=== PATIENT | female | born 1960 | race Hispanic/Latino ===

== ENCOUNTER 2016-07-22 15:22 | Inpatient (IN) | payer MEDICARE ==
[2016-07-22 16:15] LABS: Basophils % (Auto) 0.2 % (0.0-1.8); Eosinophils % (Auto) 0.3 % (0.0-4.3); Hemoglobin 16.5 gm/dl (10.1-14.3); Mean Corpuscular HGB Conc 34 % (30-34); Mean Corpuscular Hemoglobin 34 pg (28-32); Mean Corpuscular Volume 99 fl (79-97); Platelet Count 248 K/mm3 (140-440); Red Blood Count 4.87 M/mm3 (3.65-5.03); Red Cell Distribution Width 14.9 % (13.2-15.2); White Blood Count 8.8 K/mm3 (4.5-11.0)
[2016-07-22 16:20] LABS: Blood Urea Nitrogen 8 mg/dL (7-17); Calcium 8.7 mg/dL (8.4-10.2); Carbon Dioxide 30 mmol/L (22-30); Chloride 83.4 mmol/L (98-107); Glucose 306 mg/dL (65-100); Potassium 4.9 mmol/L (3.6-5.0); Sodium 127 mmol/L (137-145)
[2016-07-22 16:21] LABS: Anion Gap 19 mmol/L
--- NOTE | 2016-07-22 17:00 | Emergency Department Report ---
ED Shortness of Breath HPI - General Chief Complaint: Dyspnea/Respdistress Stated Complaint: AR Time Seen by Provider: 07/22/16 16:25 Source: patient, EMS, old records reviewed (no previous medical record under [facility]) Mode of arrival: Stretcher Limitations: No Limitations - History of Present Illness Initial Comments: 55-year-old female the past medical history of COPD with 2 L O2 dependence, diabetes, sleep apnea, and obesity presents to the hospital with complaints of shortness of breath for the past 4 days. Patient having wheezing episodes, cough that is productive, and subjective fever. She complains of left upper and mid chest pain described as a soreness worse with palpation, rated 3/10 in intensity, and intermittent. No previous history of intubations. Patient is intimate compliant with her home CPAP. Research Program Intern: primary care doctor: Dr. Lma? - Related Data Home Medications Medication Instructions Recorded Confirmed Last Taken Aspirin [Aspirin BABY CHEW TAB] 81 mg PO DAILY 07/22/16 07/22/16 Unknown Insulin NPH Hum/Reg Insulin Hm 20 units SUB-Q TID 07/22/16 07/22/16 Unknown [HumuLIN 70-30 Vial] clonazePAM [KlonoPIN] 1 mg PO TID 07/22/16 07/22/16 Unknown traZODone [Desyrel] 200 mg PO QHS 07/22/16 07/22/16 Unknown Allergies Allergy/AdvReac Type Severity Reaction Status Date / Time No Known Allergies Allergy Unverified 07/22/16 15:41 ED Review of Systems ROS: Stated complaint: AR Other details as noted in HPI Comment: All other systems reviewed and negative Other: Constitutional: As per HPI Eyes: No eye pain visual changes ENT: No ear pain or throat pain Neck: Denies pain Respiratory: As per HPI Cardiovascular: As per HPI GI: Denies abdominal pain, nausea, vomiting, diarrhea : Denies dysuria, urinary frequency, or urgency Musculoskeletal: Denies back pain Skin: Denies rash, lesions, erythema Neurologic: Denies headache, numbness, weakness Psychiatric: Denies suicidal ideation, hallucinations ED Past Medical Hx - Past Medical History Previous Medical History?: Yes Hx Diabetes: Yes Hx Asthma: Yes Hx COPD: Yes - Surgical History Past Surgical History?: Yes Additional Surgical History: C-sections - Social History Smoking Status: Current Every Day Smoker Substance Use Type: None - Medications Home Medications: Home Medications Medication Instructions Recorded Confirmed Last Taken Type Aspirin [Aspirin BABY CHEW TAB] 81 mg PO DAILY 07/22/16 07/22/16 Unknown History Insulin NPH Hum/Reg Insulin Hm 20 units SUB-Q TID 07/22/16 07/22/16 Unknown History [HumuLIN 70-30 Vial] clonazePAM [KlonoPIN] 1 mg PO TID 07/22/16 07/22/16 Unknown History traZODone [Desyrel] 200 mg PO QHS 07/22/16 07/22/16 Unknown History ED Physical Exam - General Limitations: No Limitations - Other Other exam information: General: No limitations, patient is alert in no acute distress, obese Head exam: Atraumatic, normocephalic Eyes exam: Normal appearance ENT: Moist mucous membrane, normal oropharynx Neck exam: Normal inspection, full range of motion, no meningismus nontender Respiratory exam: Diminished breath sounds bilaterally, no tachypnea, no accessory muscle use at this time Cardiovascular: Normal rate and rhythm, normal heart sounds, reproducible left anterior chest wall tenderness Abdomen: Soft, nondistended, and nontender, with normal bowel sounds, no rebound, or guarding Extremity: Full range of motion, trace lower extremity edema Back: Normal Inspection, full range of motion, no tenderness Neurologic: Alert, oriented x3, cranial nerves intact, no motor or sensory deficit Psychiatric: normal affect, normal mood Skin: Warm, dry, intact ED Course Vital Signs 07/22/16 07/22/16 07/22/16 15:25 15:31 16:00 Pulse Rate 71 76 78 Respiratory 15 15 Rate Blood Pressure 128/81 116/67 O2 Sat by Pulse 90 89 Oximetry - Reevaluation(s) Reevaluation #1: 07/22/16 17:06 Patient placed on Ventimask with improved oxygenation ED Medical Decision Making - Lab Data Result diagrams: 07/22/16 15:49 07/22/16 15:49 Lab Results 07/22/16 07/22/16 Range/Units 15:49 15:49 WBC 8.8 (4.5-11.0) K/mm3 RBC 4.87 (3.65-5.03) M/mm3 Hgb 16.5 H (10.1-14.3) gm/dl Hct 48.0 H (30.3-42.9) % MCV 99 H (79-97) fl MCH 34 H (28-32) pg MCHC 34 (30-34) % RDW 14.9 (13.2-15.2) % Plt Count 248 (140-440) K/mm3 Lymph % (Auto) 28.2 (13.4-35.0) % Tripp % (Auto) 6.4 (0.0-7.3) % Eos % (Auto) 0.3 (0.0-4.3) % Baso % (Auto) 0.2 (0.0-1.8) % Lymph # 2.5 (1.2-5.4) K/mm3 Tripp # 0.6 (0.0-0.8) K/mm3 Eos # 0.0 (0.0-0.4) K/mm3 Baso # 0.0 (0.0-0.1) K/mm3 Seg Neutrophils % 64.9 (40.0-70.0) % Seg Neutrophils # 5.7 (1.8-7.7) K/mm3 Sodium 127 L (137-145) mmol/L Potassium 4.9 (3.6-5.0) mmol/L Chloride 83.4 L (98-107) mmol/L Carbon Dioxide 30 (22-30) mmol/L Anion Gap 19 mmol/L BUN 8 (7-17) mg/dL Creatinine 0.5 L (0.7-1.2) mg/dL Estimated GFR > 60 ml/min BUN/Creatinine Ratio 16.00 % Glucose 306 H (65-100) mg/dL Calcium 8.7 (8.4-10.2) mg/dL Troponin T < 0.010 (0.00-0.029) ng/mL - EKG Data -: EKG Interpreted by Me (sinus rhythm rate 76 voltage QRS no STEMI) - Radiology Data Radiology results: image reviewed (chest x-ray: No acute findings) - Medical Decision Making Patient treated with insulin for hyperglycemia, increased supplemental oxygen, and receives azithromycin in the ED. When necessary nebulizer treatments provided. Will admit to the hospital further treatment of COPD exacerbation. CK and troponin ordered although chest pain appears to be musculoskeletal reproducible because patient has poor R-wave progression and negative inferior QRS complex and there is no previous EKG for comparison.On 3L o2 sat dropped to low 80's. ABG therefore performed a 40% Ventimask and reveals hypoxia and co2 retention (acute on chronic) with mild resp acidosis. BIPAP ordered - Differential Diagnosis COPD, asthma, pneumonia, IN, unstable angina, chest wall pain Critical Care Time: No Critical care attestation.: If time is entered above; I have spent that time in minutes in the direct care of this critically ill patient, excluding procedure time. ED Disposition Clinical Impression: COPD exacerbation, Oxygen dependent, Hyperglycemia due to type 2 diabetes mellitus, CO2 retention Sleep apnea Qualifiers: Sleep apnea type: unspecified type Qualified Code(s): G47.30 - Sleep apnea, unspecified Obesity Qualifiers: Obesity type: unspecified obesity type Disposition: OP ADMITTED IP TO THIS HOSP Is pt being admited?: Yes Condition: Stable Time of Disposition: 17:00 (Dr aguilar/hosp)
[2016-07-22] MEDS ORDERED: DUONEB 0.5 MG-3 MG/3 ML SOLN IH PRN ×2 (17:02→20:59)
[2016-07-22] MEDS ORDERED: ZITHROMAX 500 MG in NACL 0.9% 250ML 250 ML IV ONE (17:30)
[2016-07-22 17:58] LABS: ISTAT Base Excess 11; ISTAT HCO3 37.6; ISTAT PCO2 79.5 (35-45); ISTAT PH 7.282 (7.35-7.45); ISTAT PO2 57 (80-105); ISTAT SO2 83; ISTAT TCO2 40
--- NOTE | 2016-07-22 20:50 | Event Note ---
Date: 07/22/16 See H/p in reports COPD exacerbation Resp failure CORY IDDM Obesity
[2016-07-22] MEDS ORDERED: DILAUDID IV PRN (20:51)
[2016-07-22] MEDS ORDERED: ZITHROMAX 500 MG in NACL 0.9% 250ML 250 ML IV SCH (21:00)
[2016-07-22] MEDS ORDERED: ROCEPHIN/NS 2 GM/100 ML 100 ML IV SCH (21:00)
[2016-07-22] MEDS ORDERED: PROVENTIL IH PRN (21:07)
[2016-07-22] MEDS: DUONEB 0.5 MG-3 MG/3 ML SOLN IH SCH (21:55)
[2016-07-22 22:13] LABS: ISTAT Base Excess 8; ISTAT PCO2 74.2 (35-45); ISTAT PH 7.282 (7.35-7.45); ISTAT PO2 74 (80-105); ISTAT SO2 92; ISTAT TCO2 37
--- NOTE | 2016-07-22 23:38 | Admit Criteria Form ---
Admission Criteria Documentation: COPD Clinical Indications for Admission to Inpatient Care (Place 'X' for any and all applicable criteria): Admission is indicated for ANY ONE of the following (1)(2)(3): [X ]I. Acute exacerbation by high-risk comorbidity (e.g., pneumonia, dysrhythmia, heart failure, pleural effusion, pneumothorax) or severe underlying COPD (e.g., steroid dependent) [ ]II. Inpatient admission required rather than observation care (see Chronic Obstructive Pulmonary Disease: Observation Care) because of ANY ONE of the following: [ ]a) New or pre-existing signs or symptoms of COPD (eg, dyspnea or Tachypnea at rest or with minimal activity) that persist despite outpatient and observation care treatment [ ]b) New-onset hypoxemia (room air SaO2 less than 90%, PO2 less than 60 mm Hg (8.0 kPa)) that persists despite outpatient and observation care treatment [ ]c) Worsening of pre-existing hypoxemia (eg, new or increased requirement for supplemental oxygen to maintain oxygenation at baseline level) that persists despite outpatient and observation care treatment, with oxygen treatment needs performable only in acute inpatient setting [ ]d) Hypercarbia (PCO2 greater than 40 mm Hg (5.3 kPa))-induced respiratory acidosis (pH less than 7.35) that persists despite outpatient and observation care treatment [ ]e) Supplemental oxygen or respiratory treatments for over 24 hours that are performable only in acute inpatient setting [ ]f) Chest tube placement with active evacuation (e.g., suction, drainage) (5) [ ]g) Other condition, treatment or monitoring requiring inpatient admission [ ]III. Planned invasive surgical or diagnostic procedures requiring acute- care hospitalization [ ]IV. Acute respiratory failure (e.g., uncompensated hypercarbia, severe hypoxemia) [ ]V. Severe comorbid condition (e.g., severe steroid myopathy, acute vertebral fracture) that has acutely worsened pulmonary function [ ]. Confusion state, lethargy, obtundation, stupor or coma Extended stay beyond goal length of stay may be needed for (31)(32): [ ]a ) Respiratory Failure. [ ]b) Severe or persisting hypoxemia or hypercarbia [ ]c) Severe or persistent dyspnea [ ]d) Comorbidities (e.g. chronic heart failure, atrial fibrillation with rapid response, pneumonia) [ ]e) Malnutrition The original [facility] content created by [facility] has been revised. The portions of the content which have been revised are identified through the use of italic text or in bold, and [facility] has neither reviewed nor approved the modified material. All other unmodified content is copyright [facility]. Please see references footnoted in the original [facility] edition 2016 Admission Criteria Met: Yes
[2016-07-23] MEDS: ROCEPHIN/NS 1 GM/50 ML 50 ML IV SCH ×2 (00:32→10:53)
[2016-07-23] MEDS: DUONEB 0.5 MG-3 MG/3 ML SOLN IH SCH ×4 (02:57→19:52)
--- NOTE | 2016-07-23 09:31 | XRay Report ---
Single view chest: History: Difficulty breathing. Findings: Suspicion of borderline cardiomegaly. Trachea is midline. Suspicion of mild pulmonary venous congestion. No consolidation or pleural effusion. Impression: Probably due to early CHF cannot be excluded.
[2016-07-23] MEDS: LOVENOX SUB-Q SCH (10:53)
[2016-07-23] MEDS ORDERED: NACL 0.9% 1000 ML 1,000 ML IV SCH (11:00)
[2016-07-23] MEDS ORDERED: PNEUMOVAX 23 IM ONE (12:00)
--- NOTE | 2016-07-23 12:28 | History and Physical Report ---
CHIEF COMPLAINT: Increasing shortness of breath. HISTORY OF PRESENT ILLNESS: A 55-year-old with history of severe COPD and insulin-dependent diabetes, comes in for increasing shortness of breath for the past 4 days. She has severe wheezing episodes. Also, the cough was productive and subjective fever. Complains of left upper and mid chest pain described as soreness versus palpitations. 3/10 intensity. No prior history of intubation. The patient is compliant with home CPAP. PRIMARY CARE DOCTOR: Dr. Bhatt. CURRENT MEDICATIONS: Insulin 70/30, 20 units subcutaneous t.i.d., clonazepam 1 mg 3 times a day, trazodone 200 mg p.o. at bedtime, aspirin 81 mg p.o. daily. ALLERGIES: No known allergies. PAST MEDICAL HISTORY: As mentioned, COPD, asthma, diabetes. PAST SURGICAL HISTORY: . SOCIAL HISTORY: Still smokes a pack a day. No alcohol, no recreational drugs. REVIEW OF SYSTEMS: CONSTITUTIONAL: No fever, no chills. No weight loss, no weight gain. HEENT: No sore throat, no post nasal drip. CARDIOVASCULAR AND RESPIRATORY SYSTEM: Has increasing wheezing and cough productive of mucoid purulent sputum. GASTROINTESTINAL: No nausea, no vomiting, no diarrhea. GENITOURINARY: No dysuria, no flank pain. MUSCULOSKELETAL: No joint pains. No muscle pains. CENTRAL NERVOUS SYSTEM: No syncope, no seizures. SKIN: No rashes. PSYCHIATRIC: Normal affect, normal mood. A 14-point review of systems was done. PHYSICAL EXAMINATION: GENERAL: Middle-aged female, obese. VITAL SIGNS: Blood pressure is 128/81, temperature is 98, pulse is 71, respirations are 15. HEENT: Unremarkable. Pupils equal and reactive. NECK: Supple, no lymphadenopathy, no thyromegaly. LUNGS: Bilateral inspiratory and expiratory rhonchi present. Medium air entry. CARDIOVASCULAR: S1, S2 heard. No gallop, no murmur, no rub. Apical impulse in left fifth intercostal space and midclavicular line. ABDOMEN: Soft and benign. No hepatosplenomegaly. No guarding, no rigidity. Hernial orifices are normal. EXTREMITIES: Good pedal pulses. No pedal edema. CENTRAL NERVOUS SYSTEM: Alert and oriented x4, nonfocal exam. LABORATORY DATA: Significant for hemoglobin of 16.5 and a hematocrit of 48.0, platelet count is 214,000. White count is 8800. Sodium is 127, potassium is 4.9, chloride is 83.4, bicarbonate is 30, BUN and creatinine is 8 and 0.5, glucose is 306. EKG sinus rhythm, heart rate of 76, ____ criteria normal. No STEMI. RADIOLOGY: Chest x-ray shows no acute findings. ASSESSMENT AND PLAN: 1. Chronic obstructive pulmonary disease exacerbation. The patient to be started on IV steroids, IV Levaquin and DuoNeb q. 6 round the clock and q. 3 p.r.n. The patient is on 40% Ventimask. The patient ____ pCO2 79.5 and a pH of 7.28. 2. Acute respiratory failure with hypercapnia ____ DuoNebs and counseled about stopping smoking. 3. Hyponatremia. Normal saline for the time being. The patient not on any diuretics. 4. Insulin-dependent diabetes, counseled continue insulin and coverage. Generalized anxiety disorder. Continue Klonopin 1 mg t.i.d. 5. Obstructive sleep apnea. Continue BiPAP. Pulmonary consult also requested. 6. DVT prophylaxis, Lovenox 40 mg subcutaneous daily. JOB# [id number] VSNathan/NTS
[2016-07-23 12:44] LABS: ISTAT Base Excess 12; ISTAT HCO3 37.3; ISTAT PCO2 65.1 (35-45); ISTAT PH 7.365 (7.35-7.45); ISTAT PO2 47 (80-105); ISTAT SO2 79; ISTAT TCO2 39
[2016-07-23] MEDS ORDERED: D50W (25GM) IV PRN (15:41)
--- NOTE | 2016-07-23 15:52 | Progress Note ---
Assessment and Plan Assessment and plan: Acute hypoxic hypercapnic respiratory failure - She is on BiPAP - Duration around 97% COPD exacerbation - Solu-Medrol - Breathing treatment - DuoNeb Diabetes mellitus - Insulin regimen - accu checks Obstructive sleep apnea - continue BiPAP Prophylaxis - lovenox Disposition - Continue inpatient care History Interval history: patient was seen and evaluated this morning, She was on BiPAP, she was alert. Hospitalist Physical - Physical exam Narrative exam: In moderate respiratory distress. Middle aged obese white female Vital signs as documented. Head exam is unremarkable. No scleral icterus . Neck is without jugular venous distension, thyromegaly, or carotid bruits. Lungs are clear to auscultation. Cardiac exam reveals regular rate and Rhythm. First and second heart sounds normal. No murmurs, rubs or gallops. Abdominal obese. Extremities +2 nonpitting pedal and pretibial edema. CONTINUOUS IMPROVEMENT CONSULTANT: Alert and oriented 3. No focal weakness. - Constitutional Vitals: Temp Pulse Resp BP Pulse Ox 98 F 91 H 17 113/59 94 07/23/16 08:00 07/23/16 14:31 07/23/16 14:31 07/23/16 08:00 07/23/16 08:19 Results - Labs CBC & Chem 7: 07/22/16 15:49 07/22/16 15:49 Labs: Laboratory Last Values WBC 8.8 K/mm3 (4.5-11.0) 07/22/16 15:49 RBC 4.87 M/mm3 (3.65-5.03) 07/22/16 15:49 Hgb 16.5 gm/dl (10.1-14.3) H 07/22/16 15:49 Hct 48.0 % (30.3-42.9) H 07/22/16 15:49 MCV 99 fl (79-97) H 07/22/16 15:49 MCH 34 pg (28-32) H 07/22/16 15:49 MCHC 34 % (30-34) 07/22/16 15:49 RDW 14.9 % (13.2-15.2) 07/22/16 15:49 Plt Count 248 K/mm3 (140-440) 07/22/16 15:49 Lymph % (Auto) 28.2 % (13.4-35.0) 07/22/16 15:49 Millard % (Auto) 6.4 % (0.0-7.3) 07/22/16 15:49 Eos % (Auto) 0.3 % (0.0-4.3) 07/22/16 15:49 Baso % (Auto) 0.2 % (0.0-1.8) 07/22/16 15:49 Lymph # 2.5 K/mm3 (1.2-5.4) 07/22/16 15:49 Millard # 0.6 K/mm3 (0.0-0.8) 07/22/16 15:49 Eos # 0.0 K/mm3 (0.0-0.4) 07/22/16 15:49 Baso # 0.0 K/mm3 (0.0-0.1) 07/22/16 15:49 Seg Neutrophils % 64.9 % (40.0-70.0) 07/22/16 15:49 Seg Neutrophils # 5.7 K/mm3 (1.8-7.7) 07/22/16 15:49 POC ABG pH 7.365 (7.35-7.45) 07/23/16 12:34 POC ABG pCO2 65.1 (35-45) H 07/23/16 12:34 POC ABG pO2 47 (80-105) L 07/23/16 12:34 POC ABG HCO3 37.3 07/23/16 12:34 POC ABG Total CO2 39 07/23/16 12:34 POC ABG O2 Sat 79 07/23/16 12:34 POC ABG Base Excess 12 07/23/16 12:34 FiO2 50 % 07/23/16 12:34 Sodium 127 mmol/L (137-145) L 07/22/16 15:49 Potassium 4.9 mmol/L (3.6-5.0) 07/22/16 15:49 Chloride 83.4 mmol/L (98-107) L 07/22/16 15:49 Carbon Dioxide 30 mmol/L (22-30) 07/22/16 15:49 Anion Gap 19 mmol/L 07/22/16 15:49 BUN 8 mg/dL (7-17) 07/22/16 15:49 Creatinine 0.5 mg/dL (0.7-1.2) L 07/22/16 15:49 Estimated GFR > 60 ml/min 07/22/16 15:49 BUN/Creatinine Ratio 16.00 % 07/22/16 15:49 Glucose 306 mg/dL (65-100) H 07/22/16 15:49 POC Glucose 248 (70-105) H 07/23/16 10:46 Calcium 8.7 mg/dL (8.4-10.2) 07/22/16 15:49 Troponin T < 0.010 ng/mL (0.00-0.029) 07/22/16 15:49 - Imaging and Cardiology EKG: image reviewed (I personally reviewed the chest x-ray shows pulmonary congestion)
[2016-07-23] MEDS: BABY ASPIRIN PO SCH (17:17)
[2016-07-23] MEDS: LASIX PO SCH (17:20)
[2016-07-23] MEDS: DESYREL PO SCH (22:36)
[2016-07-23] MEDS: NOVOLOG SUB-Q SCH (22:41)
--- NOTE | 2016-07-23 23:38 | Consultation ---
History of Present Illness Consult date: 07/23/16 Requesting physician: MAKENNA STALEY Reason for consult: other (Acute on Chronic Hypoxemic Hypercapnic Respiratory Failure) History of present illness: PULMONARY/CCM CONSULT NOTE (Full dictation # [id number]) Please see dictated notes for full details Medications and Allergies Allergies Allergy/AdvReac Type Severity Reaction Status Date / Time No Known Allergies Allergy Unverified 07/22/16 15:41 Home Medications Medication Instructions Recorded Confirmed Last Taken Type Aspirin [Aspirin BABY CHEW TAB] 81 mg PO DAILY 07/22/16 07/22/16 Unknown History Insulin NPH Hum/Reg Insulin Hm 20 units SUB-Q TID 07/22/16 07/22/16 Unknown History [HumuLIN 70-30 Vial] clonazePAM [KlonoPIN] 1 mg PO TID 07/22/16 07/22/16 Unknown History traZODone [Desyrel] 200 mg PO QHS 07/22/16 07/22/16 Unknown History Active Meds: Active Medications Albuterol (Proventil) 2.5 mg IH Q4HRT PRN PRN Reason: Shortness Of Breath Albuterol/Ipratropium (Duoneb 0.5 Mg-3 Mg/3 Ml Soln) 1 ampul IH QIDRT PRN PRN Reason: Shortness Of Breath Albuterol/Ipratropium (Duoneb 0.5 Mg-3 Mg/3 Ml Soln) 1 ampul IH Q6HRT [facility] Last Admin: 07/23/16 19:52 Dose: 1 ampul Aspirin (Baby Aspirin) 81 mg PO DAILY [facility] Last Admin: 07/23/16 17:17 Dose: 81 mg Clonazepam (Klonopin) 1 mg PO TID [facility] Last Admin: 07/23/16 22:37 Dose: 1 mg Dextrose (D50w (25gm)) 50 ml IV PRN PRN PRN Reason: Hypoglycemia Enoxaparin Sodium (Lovenox) 40 mg SUB-Q QDAY [facility] Last Admin: 07/23/16 10:53 Dose: 40 mg Furosemide (Lasix) 40 mg PO 0600,1800 [facility] Last Admin: 07/23/16 17:20 Dose: 40 mg Hydromorphone HCl (Dilaudid) 1 mg IV Q3H PRN PRN Reason: Pain , Severe (7-10) Sodium Chloride (Nacl 0.9% 1000 Ml) 1,000 mls @ 75 mls/hr IV DIRECT [facility] Levofloxacin/Dextrose (Levaquin 750mg/150ml) 150 mls @ 100 mls/hr IV Q24H [facility] PRN Reason: Protocol Azithromycin 500 mg/ Sodium (Chloride) 250 mls @ 250 mls/hr IV Q24H [facility] Insulin Aspart (Novolog) 0 units SUB-Q QHS [facility] PRN Reason: Protocol Last Admin: 07/23/16 22:41 Dose: 4 units Insulin Human Isoph/Insulin Regular (Novolin 70/30) 20 unit SUB-Q TID [facility] Last Admin: 07/23/16 22:38 Dose: 20 unit Methylprednisolone Sodium Succinate (Solu-Medrol) 60 mg IV Q8HR [facility] Last Admin: 07/23/16 23:01 Dose: 60 mg Trazodone HCl (Desyrel) 200 mg PO QHS [facility] Last Admin: 07/23/16 22:36 Dose: 200 mg Physical Examination Vital signs: Vital Signs Pulse Resp Pulse Ox 71 15 90 07/22/16 15:25 07/22/16 15:25 07/22/16 15:25 Results - Laboratory Findings CBC and BMP: 07/22/16 15:49 07/22/16 15:49 ABG POC ABG pH 7.365 (7.35-7.45) 07/23/16 12:34 POC ABG pCO2 65.1 (35-45) H 07/23/16 12:34 POC ABG pO2 47 (80-105) L 07/23/16 12:34 POC ABG HCO3 37.3 07/23/16 12:34 POC ABG Total CO2 39 07/23/16 12:34 POC ABG O2 Sat 79 07/23/16 12:34 Abnormal lab findings: Abnormal Labs 07/22/16 07/22/16 07/22/16 17:47 17:52 20:27 POC ABG pH 7.282 L 7.282 L POC ABG pCO2 79.5 H 74.2 H POC ABG pO2 57 L 74 L POC Glucose 274 H 07/22/16 07/23/16 07/23/16 21:40 06:41 10:46 POC ABG pH POC ABG pCO2 POC ABG pO2 POC Glucose 238 H 263 H 248 H 07/23/16 07/23/1617 12:34 15:18 21:37 POC ABG pH POC ABG pCO2 65.1 H POC ABG pO2 47 L POC Glucose 292 H 315 H
[2016-07-24] MEDS: LEVAQUIN 750MG/150ML 150 ML IV SCH ×2 (00:24→17:33)
[2016-07-24] MEDS ORDERED: ZITHROMAX 500 MG in NACL 0.9% 250ML 250 ML IV SCH ×2 (01:00→10:00)
[2016-07-24] MEDS: DUONEB 0.5 MG-3 MG/3 ML SOLN IH SCH ×4 (02:30→21:33)
[2016-07-24] MEDS: LASIX PO SCH ×2 (06:21→17:34)
[2016-07-24 07:00] LABS: Hematocrit 46.8 % (30.3-42.9); Hemoglobin 15.4 gm/dl (10.1-14.3); Mean Corpuscular HGB Conc 33 % (30-34); Mean Corpuscular Hemoglobin 33 pg (28-32); Mean Corpuscular Volume 100 fl (79-97); Platelet Count 251 K/mm3 (140-440); Red Blood Count 4.68 M/mm3 (3.65-5.03); Red Cell Distribution Width 15.2 % (13.2-15.2); White Blood Count 8.5 K/mm3 (4.5-11.0)
[2016-07-24 07:21] LABS: Anion Gap 13 mmol/L; Blood Urea Nitrogen 13 mg/dL (7-17); Calcium 8.9 mg/dL (8.4-10.2); Carbon Dioxide 35 mmol/L (22-30); Chloride 92.9 mmol/L (98-107); Glucose 279 mg/dL (65-100); Potassium 4.8 mmol/L (3.6-5.0); Sodium 136 mmol/L (137-145)
[2016-07-24] MEDS: BROVANA NEBU IH SCH ×2 (08:37→21:33)
--- NOTE | 2016-07-24 11:14 | XRay Report ---
AP CHEST: 07/24/16 10:58 CLINICAL: PICC line insertion. FINDINGS: Since the last exam, a left PICC line has been inserted in the PICC line tip is at least in the right atrium. The actual tip is not well demonstrated but a significant portion of the catheter is in the right atrium. The heart and lungs are unchanged. No pneumothorax. IMPRESSION: Redundant PICC line in the right atrium. Recommend a centimeter pullback.
--- NOTE | 2016-07-24 12:04 | Progress Note ---
Assessment and Plan Patient resting on Ventimask FIO2 50%. O2 saturation 92%. Patient says breathing better than when she came into the hospital. Patient going on BIPAP during night time. - Patient Problems (1) COPD exacerbation Current Visit: Yes Status: Acute Plan to address problem: Continue BIPAP Continue O2 in between as tolerated. Albuterol/atrovent aerosol treatments. Continue Solumedral (2) Acute respiratory failure with hypoxia and hypercapnia Current Visit: Yes Status: Acute Plan to address problem: Continue BIPAP 16/8, rate 20, FIO2 50%. Albuterol/Atrovent aerosol treatments q 6 hours. Continue solumedral. Continue lovenox recommend famotidine. (3) Obesity Current Visit: Yes Status: Acute Qualifiers: Obesity type: unspecified obesity type Plan to address problem: Consult nutrition for weight reduction diet. (4) Sleep apnea Current Visit: Yes Status: Acute Qualifiers: Sleep apnea type: unspecified type Qualified Code(s): G47.30 - Sleep apnea , unspecified Plan to address problem: Patient is on BIPAP Recommend sleep study as out patient, if patient did not have one. (5) Diabetes 1.5, managed as type 2 Current Visit: Yes Status: Acute Plan to address problem: Management as per primary care. Subjective Date of service: 07/24/16 Interval history: Patient resting on Ventimask FIO2 50%. O2 saturation 92%. Patient says breathing better than when she came into the hospital. Patient going on BIPAP during night time. Objective Vital Signs - 12hr 07/24/16 07/24/16 07/24/16 00:00 00:06 02:31 Temperature 98.2 F Pulse Rate Pulse Rate [ 91 H Bilateral Throughout] Pulse Rate [ 71 From Monitor] Pulse Rate [ 68 Right Radial] Respiratory 22 20 Rate Respiratory 18 Rate [Bilateral Throughout] Blood Pressure 114/55 [Right Arm] O2 Sat by Pulse 94 97 Oximetry 07/24/16 07/24/16 07/24/16 02:33 02:43 08:00 Temperature 98.1 F Pulse Rate 83 Pulse Rate [ 93 H Bilateral Throughout] Pulse Rate [ 64 From Monitor] Pulse Rate [ Right Radial] Respiratory 25 H 20 Rate Respiratory 18 Rate [Bilateral Throughout] Blood Pressure 104/50 [Right Arm] O2 Sat by Pulse 96 96 Oximetry 07/24/16 07/24/16 07/24/16 08:37 08:38 08:47 Temperature Pulse Rate Pulse Rate [ 94 H 94 H Bilateral Throughout] Pulse Rate [ From Monitor] Pulse Rate [ Right Radial] Respiratory Rate Respiratory 18 18 Rate [Bilateral Throughout] Blood Pressure [Right Arm] O2 Sat by Pulse 92 Oximetry Constitutional: no acute distress, alert Eyes: non-icteric ENT: oropharynx moist Neck: supple, no lymphadenopathy Effort: normal Ascultation: Bilateral: diminished breath sounds Cardiovascular: regular rate and rhythm Gastrointestinal: normoactive bowel sounds, soft, non-tender Integumentary: normal Extremities: no cyanosis, no edema Neurologic: normal mental status, non-focal exam, pupils equal and round, CN II- XII normal Psychiatric: mood appropriate CBC and BMP: 07/24/16 06:11 07/24/16 06:11 ABG, PT/INR, D-dimer: ABG POC ABG pH 7.365 (7.35-7.45) 07/23/16 12:34 POC ABG pCO2 65.1 (35-45) H 07/23/16 12:34 POC ABG pO2 47 (80-105) L 07/23/16 12:34 POC ABG HCO3 37.3 07/23/16 12:34 POC ABG Total CO2 39 07/23/16 12:34 POC ABG O2 Sat 79 07/23/16 12:34 PT/INR, D-dimer D-Dimer 169.64 ng/mlDDU (0-234) 07/24/16 00:40 Abnormal lab findings: Abnormal Labs 07/22/16 07/22/16 07/22/16 17:47 17:52 20:27 Hgb Hct MCV MCH Lymph % (Auto) Lymph # Seg Neutrophils % POC ABG pH 7.282 L 7.282 L POC ABG pCO2 79.5 H 74.2 H POC ABG pO2 57 L 74 L Sodium Chloride Carbon Dioxide Creatinine Glucose POC Glucose 274 H 07/22/16 07/23/16 07/23/16 21:40 06:41 10:46 Hgb Hct MCV MCH Lymph % (Auto) Lymph # Seg Neutrophils % POC ABG pH POC ABG pCO2 POC ABG pO2 Sodium Chloride Carbon Dioxide Creatinine Glucose POC Glucose 238 H 263 H 248 H 07/23/16 07/23/16 07/23/16 12:34 15:18 21:37 Hgb Hct MCV MCH Lymph % (Auto) Lymph # Seg Neutrophils % POC ABG pH POC ABG pCO2 65.1 H POC ABG pO2 47 L Sodium Chloride Carbon Dioxide Creatinine Glucose POC Glucose 292 H 315 H 07/24/16 07/24/16 07/24/16 06:11 06:11 06:11 Hgb 15.4 H Hct 46.8 H MCV 100 H MCH 33 H Lymph % (Auto) 8.1 L Lymph # 0.7 L Seg Neutrophils % 88.5 H POC ABG pH POC ABG pCO2 POC ABG pO2 Sodium 136 L D Chloride 92.9 L Carbon Dioxide 35 H Creatinine 0.5 L Glucose 279 H POC Glucose 230 H 07/24/16 11:18 Hgb Hct MCV MCH Lymph % (Auto) Lymph # Seg Neutrophils % POC ABG pH POC ABG pCO2 POC ABG pO2 Sodium Chloride Carbon Dioxide Creatinine Glucose POC Glucose 371 H Chest x-ray: report reviewed (Early CHF can not be ruled out has been reported.) , image reviewed
[2016-07-24] MEDS: LOVENOX SUB-Q SCH (12:27)
[2016-07-24] MEDS: BABY ASPIRIN PO SCH (12:27)
--- NOTE | 2016-07-24 12:52 | Progress Note ---
Assessment and Plan Assessment and plan: Acute hypoxic hypercapnic respiratory failure - She is on BiPAP - Duration around 97% COPD exacerbation - Solu-Medrol - Breathing treatment - DuoNeb Diabetes mellitus - Insulin regimen - accu checks Obstructive sleep apnea - continue BiPAP Prophylaxis - lovenox Disposition Plan: continue inpatient care History Interval history: patient was seen and evaluated this morning, She was on BiPAP, she was alert. She said she is breathing better. She was not [facility]. Hospitalist Physical - Physical exam Narrative exam: In moderate respiratory distress. Middle aged morbidly obese white female Vital signs as documented. Head exam is unremarkable. No scleral icterus . Neck is without jugular venous distension, thyromegaly, or carotid bruits. Lungs are clear to auscultation. Cardiac exam reveals regular rate and Rhythm. First and second heart sounds normal. No murmurs, rubs or gallops. Abdominal obese. Extremities +2 nonpitting pedal and pretibial edema. ENTRY LEVEL ADMINISTRATIVE ASSISTANT: Alert and oriented 3. No focal weakness. - Constitutional Vitals: Temp Pulse Resp BP Pulse Ox 98.1 F 94 H 18 104/50 92 07/24/16 08:00 07/24/16 08:47 07/24/16 08:47 07/24/16 08:00 07/24/16 08:38 Results - Labs CBC & Chem 7: 07/24/16 06:11 07/24/16 06:11 Labs: Laboratory Last Values WBC 8.5 K/mm3 (4.5-11.0) 07/24/16 06:11 RBC 4.68 M/mm3 (3.65-5.03) 07/24/16 06:11 Hgb 15.4 gm/dl (10.1-14.3) H 07/24/16 06:11 Hct 46.8 % (30.3-42.9) H 07/24/16 06:11 MCV 100 fl (79-97) H 07/24/16 06:11 MCH 33 pg (28-32) H 07/24/16 06:11 MCHC 33 % (30-34) 07/24/16 06:11 RDW 15.2 % (13.2-15.2) 07/24/16 06:11 Plt Count 251 K/mm3 (140-440) 07/24/16 06:11 Lymph % (Auto) 8.1 % (13.4-35.0) L 07/24/16 06:11 Jack % (Auto) 3.4 % (0.0-7.3) 07/24/16 06:11 Eos % (Auto) 0.0 % (0.0-4.3) 07/24/16 06:11 Baso % (Auto) 0.0 % (0.0-1.8) 07/24/16 06:11 Lymph # 0.7 K/mm3 (1.2-5.4) L 07/24/16 06:11 Jack # 0.3 K/mm3 (0.0-0.8) 07/24/16 06:11 Eos # 0.0 K/mm3 (0.0-0.4) 07/24/16 06:11 Baso # 0.0 K/mm3 (0.0-0.1) 07/24/16 06:11 Seg Neutrophils % 88.5 % (40.0-70.0) H 07/24/16 06:11 Seg Neutrophils # 7.5 K/mm3 (1.8-7.7) 07/24/16 06:11 D-Dimer 169.64 ng/mlDDU (0-234) 07/24/16 00:40 POC ABG pH 7.365 (7.35-7.45) 07/23/16 12:34 POC ABG pCO2 65.1 (35-45) H 07/23/16 12:34 POC ABG pO2 47 (80-105) L 07/23/16 12:34 POC ABG HCO3 37.3 07/23/16 12:34 POC ABG Total CO2 39 07/23/16 12:34 POC ABG O2 Sat 79 07/23/16 12:34 POC ABG Base Excess 12 07/23/16 12:34 FiO2 50 % 07/23/16 12:34 Sodium 136 mmol/L (137-145) L D 07/24/16 06:11 Potassium 4.8 mmol/L (3.6-5.0) 07/24/16 06:11 Chloride 92.9 mmol/L (98-107) L 07/24/16 06:11 Carbon Dioxide 35 mmol/L (22-30) H 07/24/16 06:11 Anion Gap 13 mmol/L 07/24/16 06:11 BUN 13 mg/dL (7-17) 07/24/16 06:11 Creatinine 0.5 mg/dL (0.7-1.2) L 07/24/16 06:11 Estimated GFR > 60 ml/min 07/24/16 06:11 BUN/Creatinine Ratio 26.00 % 07/24/16 06:11 Glucose 279 mg/dL (65-100) H 07/24/16 06:11 POC Glucose 371 (70-105) H 07/24/16 11:18 Calcium 8.9 mg/dL (8.4-10.2) 07/24/16 06:11 Troponin T < 0.010 ng/mL (0.00-0.029) 07/22/16 15:49 NT-Pro-B Natriuret Pep 230.5 pg/mL (0-900) 07/24/16 00:40 - Imaging and Cardiology EKG: image reviewed (was done after plan placement I reviewed the chest x-ray)
[2016-07-24] MEDS ORDERED: D50W (25GM) IV PRN (12:53)
[2016-07-24] MEDS: DESYREL PO SCH (21:38)
[2016-07-24] MEDS: TYLENOL PO PRN (21:39)
[2016-07-24] MEDS: NOVOLOG SUB-Q SCH (23:09)
[2016-07-25] MEDS: DUONEB 0.5 MG-3 MG/3 ML SOLN IH SCH ×4 (02:55→20:39)
[2016-07-25] MEDS: LASIX PO SCH ×2 (06:40→18:03)
[2016-07-25] MEDS: BROVANA NEBU IH SCH ×2 (08:01→20:39)
--- NOTE | 2016-07-25 10:39 | Progress Note ---
Assessment and Plan Patient resting on 5 litres O2 via nasal canula. O2 saturation 96%. Patient says breathing better . Patient going on BIPAP during night time. Patient pulled her I/V. No I/V access now. Switching soluedral to po Prednisone. - Patient Problems (1) COPD exacerbation Current Visit: Yes Status: Acute Plan to address problem: Continue BIPAP Continue O2 in between as tolerated. Albuterol/atrovent aerosol treatments. Continue Solumedral Changing I/V solumedral to po prednisone 40 mg po qd.and in tapering doses. (2) Acute respiratory failure with hypoxia and hypercapnia Current Visit: Yes Status: Acute Plan to address problem: Continue BIPAP 16/8, rate 20, FIO2 50%. Albuterol/Atrovent aerosol treatments q 6 hours. Switched to PO prednisone. Continue lovenox recommend famotidine. (3) Obesity Current Visit: Yes Status: Acute Qualifiers: Obesity type: unspecified obesity type Plan to address problem: Consult nutrition for weight reduction diet. (4) Sleep apnea Current Visit: Yes Status: Acute Qualifiers: Sleep apnea type: unspecified type Qualified Code(s): G47.30 - Sleep apnea , unspecified Plan to address problem: Patient is on BIPAP Recommend sleep study as out patient, if patient did not have one. (5) Diabetes 1.5, managed as type 2 Current Visit: Yes Status: Acute Plan to address problem: Management as per primary care. Subjective Date of service: 07/25/16 Interval history: Patient resting on 5 litres O2 via nasal canula. O2 saturation 96%. Patient says breathing better . Patient going on BIPAP during night time. Patient pulled her I/V. No I/V access now. Switching solumedral to PO prednisone. Objective Vital Signs - 12hr 07/25/16 07/25/16 07/25/16 00:00 08:00 08:02 Temperature 98.5 F 97.8 F Pulse Rate [ 63 Bilateral Throughout] Pulse Rate [ 51 L From Monitor] Pulse Rate [ 92 H Left Radial] Respiratory 18 24 Rate Respiratory 16 Rate [Bilateral Throughout] Blood Pressure 163/93 [Left Arm] Blood Pressure 108/66 [Right Arm] O2 Sat by Pulse 97 96 Oximetry 07/25/16 08:15 Temperature Pulse Rate [ 72 Bilateral Throughout] Pulse Rate [ From Monitor] Pulse Rate [ Left Radial] Respiratory Rate Respiratory 16 Rate [Bilateral Throughout] Blood Pressure [Left Arm] Blood Pressure [Right Arm] O2 Sat by Pulse Oximetry Constitutional: no acute distress, alert Eyes: non-icteric ENT: oropharynx moist Neck: supple, no lymphadenopathy Effort: normal Ascultation: Bilateral: diminished breath sounds Cardiovascular: regular rate and rhythm Gastrointestinal: normoactive bowel sounds, soft, non-tender Integumentary: normal Extremities: no cyanosis, no edema Neurologic: normal mental status, non-focal exam, pupils equal and round, CN II- XII normal Psychiatric: mood appropriate CBC and BMP: 07/24/16 06:11 07/24/16 06:11 ABG, PT/INR, D-dimer: ABG POC ABG pH 7.365 (7.35-7.45) 07/23/16 12:34 POC ABG pCO2 65.1 (35-45) H 07/23/16 12:34 POC ABG pO2 47 (80-105) L 07/23/16 12:34 POC ABG HCO3 37.3 07/23/16 12:34 POC ABG Total CO2 39 07/23/16 12:34 POC ABG O2 Sat 79 07/23/16 12:34 PT/INR, D-dimer D-Dimer 169.64 ng/mlDDU (0-234) 07/24/16 00:40 Abnormal lab findings: Abnormal Labs 07/22/16 07/22/16 07/22/16 17:47 17:52 20:27 Hgb Hct MCV MCH Lymph % (Auto) Lymph # Seg Neutrophils % POC ABG pH 7.282 L 7.282 L POC ABG pCO2 79.5 H 74.2 H POC ABG pO2 57 L 74 L Sodium Chloride Carbon Dioxide Creatinine Glucose POC Glucose 274 H 07/22/16 07/23/16 07/23/16 21:40 06:41 10:46 Hgb Hct MCV MCH Lymph % (Auto) Lymph # Seg Neutrophils % POC ABG pH POC ABG pCO2 POC ABG pO2 Sodium Chloride Carbon Dioxide Creatinine Glucose POC Glucose 238 H 263 H 248 H 07/23/16 07/23/16 07/23/16 12:34 15:18 21:37 Hgb Hct MCV MCH Lymph % (Auto) Lymph # Seg Neutrophils % POC ABG pH POC ABG pCO2 65.1 H POC ABG pO2 47 L Sodium Chloride Carbon Dioxide Creatinine Glucose POC Glucose 292 H 315 H 07/24/16 07/24/16 07/24/16 06:11 06:11 06:11 Hgb 15.4 H Hct 46.8 H MCV 100 H MCH 33 H Lymph % (Auto) 8.1 L Lymph # 0.7 L Seg Neutrophils % 88.5 H POC ABG pH POC ABG pCO2 POC ABG pO2 Sodium 136 L D Chloride 92.9 L Carbon Dioxide 35 H Creatinine 0.5 L Glucose 279 H POC Glucose 230 H 07/24/16 07/24/16 07/24/16 11:18 15:58 22:01 Hgb Hct MCV MCH Lymph % (Auto) Lymph # Seg Neutrophils % POC ABG pH POC ABG pCO2 POC ABG pO2 Sodium Chloride Carbon Dioxide Creatinine Glucose POC Glucose 371 H 325 H 267 H 07/25/16 06:13 Hgb Hct MCV MCH Lymph % (Auto) Lymph # Seg Neutrophils % POC ABG pH POC ABG pCO2 POC ABG pO2 Sodium Chloride Carbon Dioxide Creatinine Glucose POC Glucose 235 H
[2016-07-25] MEDS: BABY ASPIRIN PO SCH (11:22)
[2016-07-25] MEDS: LOVENOX SUB-Q SCH (11:23)
[2016-07-25] MEDS: LEVAQUIN PO SCH (11:23)
[2016-07-25] MEDS: DELTASONE PO SCH (11:23)
--- NOTE | 2016-07-25 13:49 | Progress Note ---
Assessment and Plan Assessment and plan: Acute hypoxic hypercapnic respiratory failure - She is on BiPAP - Duration around 97% COPD exacerbation - on steroids - on levaquin - Breathing treatment - DuoNeb - has home oxygen Diabetes mellitus - Insulin regimen - accu checks Obstructive sleep apnea - continue BiPAP at night Prophylaxis - lovenox Disposition Plan: Possible D/C tomorrow. History Interval history: patient was seen and evaluated this morning, She was on BiPAP, she was alert. She said she is breathing better. She was not using BiPAP consistently in the alf. Hospitalist Physical - Physical exam Narrative exam: In moderate respiratory distress. Middle aged morbidly obese white female Vital signs as documented. Head exam is unremarkable. No scleral icterus . Neck is without jugular venous distension, thyromegaly, or carotid bruits. Lungs are clear to auscultation. Cardiac exam reveals regular rate and Rhythm. First and second heart sounds normal. No murmurs, rubs or gallops. Abdominal obese. Extremities +2 nonpitting pedal and pretibial edema. GIFT SHOP ASSISTANT: Alert and oriented 3. No focal weakness. - Constitutional Vitals: Temp Pulse Resp BP Pulse Ox 97.8 F 72 16 163/93 96 07/25/16 08:00 07/25/16 08:15 07/25/16 08:15 07/25/16 08:00 07/25/16 08:00 Results - Labs CBC & Chem 7: 07/24/16 06:11 07/24/16 06:11 Labs: Laboratory Last Values WBC 8.5 K/mm3 (4.5-11.0) 07/24/16 06:11 RBC 4.68 M/mm3 (3.65-5.03) 07/24/16 06:11 Hgb 15.4 gm/dl (10.1-14.3) H 07/24/16 06:11 Hct 46.8 % (30.3-42.9) H 07/24/16 06:11 MCV 100 fl (79-97) H 07/24/16 06:11 MCH 33 pg (28-32) H 07/24/16 06:11 MCHC 33 % (30-34) 07/24/16 06:11 RDW 15.2 % (13.2-15.2) 07/24/16 06:11 Plt Count 251 K/mm3 (140-440) 07/24/16 06:11 Lymph % (Auto) 8.1 % (13.4-35.0) L 07/24/16 06:11 [place] % (Auto) 3.4 % (0.0-7.3) 07/24/16 06:11 Eos % (Auto) 0.0 % (0.0-4.3) 07/24/16 06:11 Baso % (Auto) 0.0 % (0.0-1.8) 07/24/16 06:11 Lymph # 0.7 K/mm3 (1.2-5.4) L 07/24/16 06:11 [place] # 0.3 K/mm3 (0.0-0.8) 07/24/16 06:11 Eos # 0.0 K/mm3 (0.0-0.4) 07/24/16 06:11 Baso # 0.0 K/mm3 (0.0-0.1) 07/24/16 06:11 Seg Neutrophils % 88.5 % (40.0-70.0) H 07/24/16 06:11 Seg Neutrophils # 7.5 K/mm3 (1.8-7.7) 07/24/16 06:11 D-Dimer 169.64 ng/mlDDU (0-234) 07/24/16 00:40 POC ABG pH 7.365 (7.35-7.45) 07/23/16 12:34 POC ABG pCO2 65.1 (35-45) H 07/23/16 12:34 POC ABG pO2 47 (80-105) L 07/23/16 12:34 POC ABG HCO3 37.3 07/23/16 12:34 POC ABG Total CO2 39 07/23/16 12:34 POC ABG O2 Sat 79 07/23/16 12:34 POC ABG Base Excess 12 07/23/16 12:34 FiO2 50 % 07/23/16 12:34 Sodium 136 mmol/L (137-145) L D 07/24/16 06:11 Potassium 4.8 mmol/L (3.6-5.0) 07/24/16 06:11 Chloride 92.9 mmol/L (98-107) L 07/24/16 06:11 Carbon Dioxide 35 mmol/L (22-30) H 07/24/16 06:11 Anion Gap 13 mmol/L 07/24/16 06:11 BUN 13 mg/dL (7-17) 07/24/16 06:11 Creatinine 0.5 mg/dL (0.7-1.2) L 07/24/16 06:11 Estimated GFR > 60 ml/min 07/24/16 06:11 BUN/Creatinine Ratio 26.00 % 07/24/16 06:11 Glucose 279 mg/dL (65-100) H 07/24/16 06:11 POC Glucose 273 (70-105) H 07/25/16 11:35 Calcium 8.9 mg/dL (8.4-10.2) 07/24/16 06:11 Troponin T < 0.010 ng/mL (0.00-0.029) 07/22/16 15:49 NT-Pro-B Natriuret Pep 230.5 pg/mL (0-900) 07/24/16 00:40
[2016-07-25] MEDS: TYLENOL PO PRN (14:04)
[2016-07-25 15:15] LABS: Basophils % (Auto) 0.1 % (0.0-1.8); Hematocrit 47.6 % (30.3-42.9); Hemoglobin 15.4 gm/dl (10.1-14.3); Mean Corpuscular HGB Conc 32 % (30-34); Mean Corpuscular Hemoglobin 33 pg (28-32); Mean Corpuscular Volume 101 fl (79-97); Platelet Count 222 K/mm3 (140-440); Red Cell Distribution Width 15.2 % (13.2-15.2); White Blood Count 9.9 K/mm3 (4.5-11.0)
[2016-07-25 15:33] LABS: Anion Gap 15 mmol/L; BUN/Creatinine Ratio 23.33; Blood Urea Nitrogen 14 mg/dL (7-17); Calcium 8.9 mg/dL (8.4-10.2); Carbon Dioxide 34 mmol/L (22-30); Chloride 91.4 mmol/L (98-107); Glucose 355 mg/dL (65-100); Potassium 4.5 mmol/L (3.6-5.0); Sodium 136 mmol/L (137-145)
[2016-07-25] MEDS: DESYREL PO SCH (22:50)
[2016-07-25] MEDS: NOVOLOG SUB-Q SCH (23:00)
[2016-07-26] MEDS: DUONEB 0.5 MG-3 MG/3 ML SOLN IH SCH ×2 (01:48→07:53)
[2016-07-26] MEDS: LASIX PO SCH (05:04)
--- NOTE | 2016-07-26 07:40 | Vascular Lab Report ---
LOWER EXTREMITY VENOUS DUPLEX: REASON FOR EXAM: Swelling. COMMENTS ON THE RIGHT: All veins visualized are freely compressible without evidence of internal echogenicity. Flow is spontaneous and phasic throughout. COMMENTS ON THE LEFT: All veins visualized are freely compressible without evidence of internal echogenicity. Flow is spontaneous and phasic throughout. IMPRESSION: No evidence of acute or chronic deep venous thrombosis in either lower extremity.
--- NOTE | 2016-07-26 07:52 | Consultation ---
CONSULTING PHYSICIAN: Dr. Blood. REASON FOR CONSULTATION: Acute respiratory failure. CHIEF COMPLAINT AND HISTORY OF PRESENT ILLNESS: The patient is a 55-year-old female with past medical history significant amongst other things for a diagnosis of chronic obstructive lung disease and likely obstructive sleep apnea. She tells me she has a CPAP or BiPAP machine at home. She is on home oxygen, came into the Emergency Room complaining of increasing shortness of breath . She was wheezing. She had a cough that was productive, unclear what kind of phlegm she was producing and she had some subjective fevers. She was also complaining of some chest pain. She was evaluated in the Emergency Room. She admitted to being very compliant with her CPAP machine. The patient is a 10+ pack year tobacco smoker and continues to smoke despite prior recommendations to quit admittedly. When I stopped by to see her, she was on a BiPAP machine. She was arousable, was feeling sleepy. Denied any acute chest pain and was feeling better. Denied nausea, vomiting, or overt aspiration. That really is as much of the history of presentation as I have. PAST MEDICAL HISTORY: COPD, diabetes, sleep apnea. She is obese, morbidly so. PAST SURGICAL HISTORY: She has had sections in the past. MEDICATIONS: She was on at the time I stopped by to see her, according to the medication administration record included the following: DuoNeb treatments nebulized q.6 hours, aspirin 81 mg p.o. daily, Zithromax 500 mg IV daily, Klonopin 1 mg p.o. t.i.d. scheduled, Lovenox 40 mg subq daily, Lasix 40 mg p.o. b.i.d., Dilaudid 1 mg IV q.3 hours p.r.n., insulin via sliding scale 70/30 Insulin 20 units subq t.i.d., Levaquin 750 mg IV daily, Solu-Medrol 60 mg IV q.8 hours, and trazodone 200 mg p.o. at bedtime. She was on normal saline at 75 mL per hour . ALLERGIES: No known drug allergies. DIET: Morbidly obese, acute weight loss or gain history is unknown. FAMILY AND SOCIAL HISTORY: Lives in the community, 20+ pack year tobacco smoking history, alcohol, illicit drug use or abuse history is unknown. REVIEW OF SYSTEMS: No loss of consciousness. No new onset seizures. No new onset focal weakness. She denied gross hematochezia or melena. Denied gross hematuria or dysuria. No hematemesis. No hemoptysis. No palpitations. Complete review of systems is obtained. Pertinent positives and/or negatives as in body of history above, otherwise noncontributory. PHYSICAL EXAMINATION: VITAL SIGNS: At presentation in the emergency room, she was afebrile, temperature 98.3, pulse was 71, respiratory rate 25, blood pressure 123/64, oxygen sats 95%, inspired oxygen concentration, however, was not reported, described as short of breath, labored. HEAD, EYES, EARS, NOSE, AND THROAT: Pupils are equal and round about 3 mm reactive to light. Extraocular muscle movements could not be assessed. She had a BiPAP JOB# [id number] PADMA/NTS
--- NOTE | 2016-07-26 07:53 | Consultation ---
CONSULTING PHYSICIAN: Dr. Blood. REASON FOR CONSULTATION: Acute respiratory failure. CHIEF COMPLAINT AND HISTORY OF PRESENT ILLNESS: The patient is a 55-year-old female with past medical history significant amongst other things for a diagnosis of chronic obstructive lung disease and likely obstructive sleep apnea. She tells me she has a CPAP or BiPAP machine at home. She is on home oxygen, came into the Emergency Room complaining of increasing shortness of breath. She was wheezing. She had a cough that was productive, unclear what kind of phlegm she was producing and she had some subjective fevers. She was also complaining of some chest pain. She was evaluated in the Emergency Room. She admitted to being very compliant with her CPAP machine. The patient is a 10+ pack year tobacco smoker and continues to smoke despite prior recommendations to quit admittedly. When I stopped by to see her, she was on a BiPAP machine. She was arousable, was feeling sleepy. Denied any acute chest pain and was feeling better. Denied nausea, vomiting, or overt aspiration. That really is as much of the history of presentation as I have. PAST MEDICAL HISTORY: COPD, diabetes, sleep apnea. She is obese, morbidly so. PAST SURGICAL HISTORY: She has had sections in the past. MEDICATIONS: She was on at the time I stopped by to see her, according to the medication administration record included the following: DuoNeb treatments nebulized q.6 hours, aspirin 81 mg p.o. daily, Zithromax 500 mg IV daily, Klonopin 1 mg p.o. t.i.d. scheduled, Lovenox 40 mg subq daily, Lasix 40 mg p.o. b.i.d., Dilaudid 1 mg IV q.3 hours p.r.n., insulin via sliding scale 70/30 Insulin 20 units subq t.i.d., Levaquin 750 mg IV daily, Solu-Medrol 60 mg IV q.8 hours, and trazodone 200 mg p.o. at bedtime. She was on normal saline at 75 mL per hour. ALLERGIES: No known drug allergies. DIET: Morbidly obese, acute weight loss or gain history is unknown. FAMILY AND SOCIAL HISTORY: Lives in the community, 20+ pack year tobacco smoking history, alcohol, illicit drug use or abuse history is unknown. REVIEW OF SYSTEMS: No loss of consciousness. No new onset seizures. No new onset focal weakness. She denied gross hematochezia or melena. Denied gross hematuria or dysuria. No hematemesis. No hemoptysis. No palpitations. Complete review of systems is obtained. Pertinent positives and/or negatives as in body of history above, otherwise noncontributory. PHYSICAL EXAMINATION: VITAL SIGNS: At presentation in the emergency room, she was afebrile, temperature 98.3, pulse was 71, respiratory rate 25, blood pressure 123/64, oxygen sats 95%, inspired oxygen concentration, however, was not reported, described as short of breath, labored. HEAD, EYES, EARS, NOSE, AND THROAT: Pupils are equal and round about 3 mm reactive to light. Extraocular muscle movements could not be assessed. She had a BiPAP HEENT: She had a BiPAP mask over her face, unable to exam her oropharynx. NECK: Grossly no palpable lymph nodes in the supraclavicular or submandibular lymph node chains. No gross jugular venous distention. LUNGS: Auscultation of both lung paiz reveal clear bilateral breath sounds; however, diminished with a prolonged expiratory phase and diminished bibasilar air entry. HEART: Heart sounds 1 and 2 are heard. They were regular in rate and rhythm at time of my evaluation. ABDOMEN: Full, soft. Bowel sounds are positive. Nontender. EXTREMITIES: Without overt digital clubbing or cyanosis. Trace pedal edema. NEUROLOGICAL: The exam was grossly nonfocal. LABORATORY DATA: For my review are as follows: Admission white cell count 8800, hemoglobin 16.5, hematocrit 48.0, platelets 248. Arterial blood gas at presentation was 7.28 on the pH, pCO2 was 80, pO2 was 57 that was on 40% FiO2, oxygen delivery method was not described. Serum sodium 127, potassium 4.9, chloride 83, bicarbonate 30, BUN 8, creatinine 0.5, and glucose was 306. Most recent blood gas showed a pH of 7.37, pCO2 of 65, pO2 of 47, however, that was on 50% FiO2 at that time. Microbiology Studies: None of them have been shown. Chest x-ray has been reviewed. I have also reviewed the radiologist's interpretation. Soft tissue shadows make interpretation a little bit confusing. However, I do think there is mild increased interstitial edema consistent with an element of pulmonary edema over a chronic baseline. Cardiovascular silhouette appears borderline and enlarged, no gross pneumothorax, no gross bony fracture. ASSESSMENT AND PLAN: We have a middle-aged lady in with an acute chronic obstructive pulmonary disease exacerbation as usual, the question is why. It is unclear she also has a baseline history of congestive heart failure. However, the chest x-ray suggests an element of pulmonary edema. From a respiratory standpoint, we will continue bilevel positive air pressure ventilation therapy. We will continue bronchodilators as short acting bronchodilators as ordered. I will add long acting bronchodilators. I will also begin a systemic steroid taper. Diuresis should continue. Aspiration precautions will be maintained. I will go ahead and get a D-dimer level and do a venous thromboembolic disorder workup in this lady. If those are positive, we will go ahead with the bilateral lower extremity Dopplers plus or minus other testing depend on her progress during this hospitalization. I should mention that we can deescalate antibiotic therapy to Levaquin monotherapy. Sputum will be sent for Gram-stain culture and sensitivities. She is appropriately on DVT prophylaxis. She will be placed on GI prophylaxis. Flu and pneumonia vaccination will be per protocol. Thank you very much for the consult Dr. Blood. We will follow along. We will make further recommendations as the picture progresses/becomes clearer. JOB# [id number] PADMA/AVE LUCIANO
[2016-07-26] MEDS: BROVANA NEBU IH SCH (07:59)
[2016-07-26 09:02] VITALS: BP 87/52
[2016-07-26] MEDS: DELTASONE PO SCH (09:09)
[2016-07-26] MEDS: BABY ASPIRIN PO SCH (09:09)
[2016-07-26] MEDS: LEVAQUIN PO SCH (09:09)
[2016-07-26] MEDS: LOVENOX SUB-Q SCH (09:09)
--- NOTE | 2016-07-26 11:07 | Discharge Summary ---
Providers - Providers Date of Admission: 07/22/16 17:02 Date of discharge: 07/26/16 Attending physician: NISHANT WILKERSON MD 07/23/16 10:55 Consult to Physician [CONS] Routine Consulting Provider: JORGE NAIK Reason For Exam: Acute resp failure Place consult to:: DR. Kauffman Notified:: [employer]ERING [employer] Phone number called:: [phone] Was contact made?: Yes If yes, spoke with:: JOSE Time called:: 11:24 Comment:: ALYCE NOTIFIED Primary care physician: [employer]ACHIN[employer] Hospitalization Reason for admission: COPD exacerbation, CORY Condition: Stable Pertinent studies: VQ scan Hospital course: 55-year-old female the past medical history of COPD with 2 L O2 dependence, diabetes, sleep apnea, and obesity presents to the hospital with complaints of shortness of breath for 4 days. Patient was having wheezing episodes, cough that was productive, and subjective fever. She complains of left upper and mid chest pain described as a soreness worse with palpation, rated 3/10 in intensity , and intermittent. No previous history of intubations. Patient has been using home CPAP. Patient was admitted and managed for COPD exacerbations and the patient is feeling well. Breathing ok at her base line. I am going to discharge her to home with Short term antibiotics and steroid. Disposition: DISCHARGED TO HOME OR SELFCARE Time spent for discharge: 31 minutes - Discharge Diagnoses (1) Acute respiratory failure with hypoxia and hypercapnia Status: Acute (2) CO2 retention Status: Acute (3) COPD exacerbation Status: Acute (4) Diabetes 1.5, managed as type 2 Status: Acute (5) Hyperglycemia due to type 2 diabetes mellitus Status: Acute (6) Obesity Status: Acute Qualifiers: Obesity type: unspecified obesity type (7) Oxygen dependent Status: Acute (8) Sleep apnea Status: Acute Qualifiers: Sleep apnea type: unspecified type Qualified Code(s): G47.30 - Sleep apnea , unspecified Core Measure Documentation - Palliative Care Palliative Care/ Comfort Measures: Not Applicable - Core Measures Any of the following diagnoses?: none Exam - Physical Exam Narrative exam: In moderate respiratory distress. Middle aged morbidly obese white female Vital signs as documented. Head exam is unremarkable. No scleral icterus . Neck is without jugular venous distension, thyromegaly, or carotid bruits. Lungs scattered wheezes on the posterior chest. Cardiac exam reveals regular rate and Rhythm. First and second heart sounds normal. No murmurs, rubs or gallops. Abdominal obese. Extremities +2 nonpitting pedal and pretibial edema. [employer]INEER: Alert and oriented 3. No focal weakness. - Constitutional Vitals: Temp Pulse Resp BP Pulse Ox 98.3 F 78 16 87/52 100 07/26/16 08:01 07/26/16 08:09 07/26/16 08:09 07/26/16 08:01 07/26/16 08:01 Plan Activity: no restrictions Weight Bearing Status: Weight Bear as Tolerated Diet: low fat, low cholesterol, low salt, diabetic Durable Medical Equipment Needed Upon Discharge: Oxygen Prescriptions: Furosemide [Furosemide ORAL LIQ] 40 mg PO QDAY #30 mg Levofloxacin [Levaquin TAB] 500 mg PO Q24HR #5 tablet Prednisone [predniSONE 10 mg (6-Day Pack, 21 Tabs)] 10 mg PO .TAPER #1 tab.ds.pk
--- NOTE | 2016-07-26 11:33 | Echocardiography Report ---
Transthoracic Echocardiogram Indication: CHF BP: 108/66 Findings Procedure Info: The study quality is technically difficult. The study is technically limited due to patient body habitus. Left Ventricle: The left ventricular chamber size is normal. There is no left ventricular hypertrophy. Global left ventricular wall motion and contractility are within normal limits. Global left ventricular systolic function is normal. The estimated ejection fraction is 60-65%. Normal left ventricular diastolic filling is observed. Left Atrium: The left atrial chamber size is normal. Right Ventricle: The right ventricle is not well visualized. The right ventricular cavity size is normal. The right ventricular global systolic function is normal. Right Atrium: The right atrium is not well visualized. The right atrial cavity size is normal. The interatrial septum appears normal. Aortic Valve: The aortic valve is not well visualized. The aortic valve structure is normal. The aortic valve leaflets are mildly thickened. There is no evidence of aortic regurgitation. There is no evidence of aortic stenosis. Mitral Valve: The mitral valve leaflets appear myxomatous. The mitral valve leaflets are mildly thickened. There is trace of mitral regurgitation. There is no evidence of mitral stenosis. Tricuspid Valve: The tricuspid valve is not well visualized. The tricuspid valve leaflets are normal. There is trace tricuspid regurgitation. The right ventricular systolic pressure is calculated at 18 mmHg. No pulmonary hypertension is noted. There is no tricuspid stenosis. Pulmonic Valve: The pulmonic valve appears normal. There is no evidence of pulmonic regurgitation. There is no pulmonic stenosis. Pericardium: There is no pericardial effusion. Aorta: There is no dilatation of the ascending aorta. There is no dilatation of the aortic root. Venous: The inferior vena cava is not visualized. Measurements Chambers MM Name Value Normal Range Ao root diameter (MM) 3.3 cm (2 - 3.7) LA dimension (AP) MM 3.6 cm (1.9 - 4) LA:Ao ratio (MM) 1.09 ratio - AV cusp separation (MM) 2.4 cm (1.5 - 2.6) Chambers 2D Name Value Normal Range RVIDd (AP) 2D 3.23 cm (0.9 - 2.6) IVSd (2D) 1.15 cm (0.6 - 1.1) LVPWd (2D) 0.96 cm (0.6 - 1.1) IVS:LVPW ratio (2D) 1.2 ratio - LVIDd (2D) 5.43 cm (3.7 - 5.6) LVIDs (2D) 3.53 cm (2 - 3.8) LV FS (Teichholz) (2D) 35 % - LV FS (cube) (2D) 35 % - EF Teichholz (2D) 63.7 % - Ao root diameter (2D) 3.2 cm (2 - 3.7) LA dimension (AP) 2D 3.3 cm (1.9 - 4) LA:Ao ratio (2D) 1.03 ratio - Volumes/Mass Name Value Normal Range LA ESV SP 4CH (MOD) 38 ml - Diastolic/Systolic Function Name Value Normal Range MV E-wave Vmax 1.05 m/sec - MV A-wave Vmax 1.01 m/sec - MV E:A ratio 1 ratio - LV septal e' Vmax 0.08 m/sec - LV lateral e' Vmax 0.09 m/sec - LV E:e' septal ratio 12.4 ratio - LV E:e' lateral ratio 11.2 ratio - Aortic Valve Name Value Normal Range AV VTI 35.9 cm - AV mean gradient 7 mmHg - LVOT diameter 2.3 cm - LVOT VTI 25.3 cm - LVOT mean gradient 3 mmHg - SV LVOT 105 ml - ERIC (continuity VTI) 2.92 cm2 - Tricuspid Valve Name Value Normal Range TR Vmax 1.93 m/sec - TR peak gradient 15 mmHg - RAP 3 mmHg - RVSP 18 mmHg - Pulmonic Valve/Qp:Qs Name Value Normal Range PV Vmax 0.76 m/sec - PV peak gradient 2 mmHg -
== END 2016-07-26 12:14 | disposition home or self-care (01) | DRG 189 ==
LOC: ED 15:22 → 3A 17:02
PROVIDERS: ADMIT Internal Medicine; ATTEND Internal Medicine
PROC: 4A033R1 Measurement of Arterial Saturation, Peripheral, Percutaneous Approach (ICD-10-PCS; principal; 2016-07-22)
PROC: 5A09357 Assistance with Respiratory Ventilation, Less than 24 Consecutive Hours, Continuous Positive Airway Pressure (ICD-10-PCS; 2016-07-22)
PROC: 4A033R1 Measurement of Arterial Saturation, Peripheral, Percutaneous Approach (ICD-10-PCS; 2016-07-23)
PROC: 02H633Z Insertion of Infusion Device into Right Atrium, Percutaneous Approach (ICD-10-PCS; 2016-07-24)
DX: J96.02 Acute respiratory failure with hypercapnia (principal); J44.1 Chronic obstructive pulmonary disease with (acute) exacerbation; Z68.42 Body mass index [BMI] 45.0-49.9, adult; E11.65 Type 2 diabetes mellitus with hyperglycemia; E66.01 Morbid (severe) obesity due to excess calories; J45.909 Unspecified asthma, uncomplicated; F17.210 Nicotine dependence, cigarettes, uncomplicated; G47.33 Obstructive sleep apnea (adult) (pediatric); J96.01 Acute respiratory failure with hypoxia; Z99.81 Dependence on supplemental oxygen; Z71.3 Dietary counseling and surveillance; Z79.82 Long term (current) use of aspirin; Z79.4 Long term (current) use of insulin; Z98.890 Other specified postprocedural states
CPT/HCPCS: 36415; 36600; 71010; 80048; 82803; 82962; 83880; 84484; 85025; 85379; 90732; 93005; 93010; 93306; 93970; 94640; 94660; 94760; 96365; 96375; 99406; J0456; J0696; J1650; J1815; J1956; J2920; J2930; J7030; J7050; J7512